=== PATIENT | male | born 1940 | race Caucasian/White ===

== ENCOUNTER 2016-10-05 03:39 | Emergency (ER) | payer MEDICAID, MEDICARE ==
[~2016-10-05] VITALS: Ht 190.5 cm; Wt 91.0 kg
[~2016-10-05 03:39] MED LIST: ALBU6.7H INH; ASPI-515 PO; CLOP75TA22 PO; CYAN10005 PO; FLUT1BLS INH; FOLI-17 PO; HYDR-3138 PO; IPRA3AMP INH; LEVO500T33 PO; LEVO750T26 PO; MAGN400T26 PO; MORP30TA3 PO; ONDA4TAB10 PO; ONDA4TAB7 PO; OXYC-74; PHOS250T3 PO; POLY17PO5 PO; PRED10TA14 PO; PRED20TA PO; SIMV20TA3 PO; TIOT18CA INH; ZOLP10TA PO
[2016-10-05] MEDS ORDERED: KETOROLAC 30 MG/1 ML ONE (04:08)
[2016-10-05] MEDS ORDERED: METHOCARBAMOL 750 MG TABLET ONE (04:08)
[2016-10-05] MEDS ORDERED: HYDROcodone/APAP 5/325 TABLET ONE (04:08)
[2016-10-05] MEDS ORDERED: HYDROcodone/APAP 5/325 TABLET PO ONE (04:30)
[2016-10-05] MEDS ORDERED: KETOROLAC 30 MG/1 ML IM ONE (04:30)
[2016-10-05] MEDS ORDERED: METHOCARBAMOL 750 MG TABLET PO ONE (04:30)
[2016-10-05 06:06] VITALS: BP 142/81
== END 2016-10-05 06:24 | disposition home or self-care (01) ==
LOC: ED 04:32
DX: S39.012A Strain of muscle, fascia and tendon of lower back, initial encounter (principal); J44.9 Chronic obstructive pulmonary disease, unspecified; Z86.73 Personal history of transient ischemic attack (TIA), and cerebral infarction without residual deficits; Z85.118 Personal history of other malignant neoplasm of bronchus and lung; Z90.49 Acquired absence of other specified parts of digestive tract; W01.0XXA Fall on same level from slipping, tripping and stumbling without subsequent striking against object, initial encounter; Y93.01 Activity, walking, marching and hiking; Y92.410 Unspecified street and highway as the place of occurrence of the external cause; Y99.9 Unspecified external cause status
CPT/HCPCS: 72110; 96372; 99284; J1885

== ENCOUNTER 2016-11-16 17:40 | Inpatient (IN) | payer MEDICARE, MEDICAID ==
[~2016-11-16] VITALS: Ht 190.5 cm; Wt 91.4 kg
[2016-11-16] MEDS: SODIUM CHLORIDE 0.9% 1,000 ML IV SCH (00:45)
[2016-11-16 18:57] LABS: BLOOD UREA NITROGEN 23 mg/dL (7-18)
[2016-11-16] MEDS ORDERED: MORPHINE SULFATE 4 MG/ML, 1ML ONE (18:58)
[2016-11-16] MEDS ORDERED: NITROGLYCERIN SINGLE TAB 0.4 MG SL ONE (18:58)
[2016-11-16] MEDS ORDERED: ASPIRIN 81 MG TABLET CHEW ONE (18:59)
[2016-11-16] MEDS ORDERED: SODIUM CHLORIDE 0.9% 1,000ML IVBOLUS ONE (19:00)
[2016-11-16] MEDS ORDERED: NITROGLYCERIN SINGLE TAB 0.4 MG SL PRN (19:00)
[2016-11-16] MEDS ORDERED: MORPHINE SULFATE 4 MG/ML, 1ML IVPush PRN (19:00)
[2016-11-16] MEDS ORDERED: ASPIRIN 81 MG TABLET CHEW PO ONE (19:00)
[2016-11-16 19:01] LABS: IS PT STATUS REG ER OR PRE ER? YES
[2016-11-16] MEDS ORDERED: CLOP75TA22 PO (19:11)
[2016-11-16] MEDS ORDERED: OMNIPAQUE 350 MG/ML, 100ML BOTTLE ONE (20:49)
[2016-11-16] MEDS ORDERED: LORazepam 1MG TABLET ONE (21:35)
[2016-11-16] MEDS ORDERED: LORazepam 1MG TABLET PO ONE (22:00)
[2016-11-16 23:23] VITALS: BP 118/69
[2016-11-17] MEDS ORDERED: ENALAPRILAT 1.25 MG/ML, 2ML IVPush PRN
[2016-11-17] MEDS ORDERED: DOCUSATE 100 MG CAPSULE PO PRN
[2016-11-17] MEDS ORDERED: HEPARIN 5,000 UNITS/ML, 1ML SQ SCH
[2016-11-17] MEDS: morphine SULFATE 10 MG/ML, 1ML IVPush PRN ×3 (00:45→15:08)
[2016-11-17 02:00] VITALS: BP 123/80
[2016-11-17 05:44] LABS: BLOOD UREA NITROGEN 23 mg/dL (7-18)
[2016-11-17 06:32] LABS: IS PT STATUS REG ER OR PRE ER? NO
[2016-11-17 08:09] VITALS: BP 117/67
[2016-11-17] MEDS ORDERED: SODIUM PHOSPHATE 20 MMOL in SODIUM CHLORIDE 0.9% 500 ML IV ONE (08:30)
[2016-11-17] MEDS: CLOPIDOGREL 75 MG TABLET PO SCH (08:36)
[2016-11-17 08:37] VITALS: BP_SYST 114; BP_SYST 121; BP_DIAS 68; BP_DIAS 71
[2016-11-17] MEDS: SODIUM CHLORIDE 0.9% 1,000 ML IV SCH ×2 (09:05→19:51)
[2016-11-17] MEDS: ENOXAPARIN 40 MG/0.4 ML SQ SCH (09:10)
[2016-11-17] MEDS ORDERED: REGADENOSON 0.4 MG/5 ML SYRINGE ONE (10:13)
[2016-11-17] MEDS: ALBUTEROL/IPRATROPIUM 2.5MG/0.5MG, 3 ML NPPB SCH ×3 (11:00→21:14)
[2016-11-17 14:56] VITALS: BP 120/72
[2016-11-17 18:40] VITALS: BP 102/54
[2016-11-18] MEDS: morphine SULFATE 10 MG/ML, 1ML IVPush PRN ×4 (02:39→21:09)
[2016-11-18 02:58] VITALS: BP 93/60
[2016-11-18] MEDS: SODIUM CHLORIDE 0.9% 1,000 ML IV SCH ×2 (06:19→15:51)
[2016-11-18 07:03] LABS: BLOOD UREA NITROGEN 18 mg/dL (7-18)
[2016-11-18] MEDS: ALBUTEROL/IPRATROPIUM 2.5MG/0.5MG, 3 ML NPPB SCH ×4 (07:08→19:16)
[2016-11-18 08:25] VITALS: BP 128/81
[2016-11-18] MEDS: ENOXAPARIN 40 MG/0.4 ML SQ SCH (08:30)
[2016-11-18] MEDS: CLOPIDOGREL 75 MG TABLET PO SCH (08:30)
[2016-11-18] MEDS ORDERED: ALBU18HF INH (10:11)
[2016-11-18] MEDS ORDERED: UMEC62.5 INH (10:14)
[2016-11-18] MEDS ORDERED: LORazepam 1MG TABLET PO ONE (12:00)
[2016-11-18 14:32] VITALS: BP 121/72
[2016-11-18 15:32] VITALS: BP 119/66
[2016-11-18 19:36] VITALS: BP 94/59
[2016-11-19 00:45] VITALS: BP 123/76
[2016-11-19] MEDS: morphine SULFATE 10 MG/ML, 1ML IVPush PRN ×6 (00:48→22:08)
[2016-11-19] MEDS: SODIUM CHLORIDE 0.9% 1,000 ML IV SCH (01:51)
[2016-11-19] MEDS: ORAJEL 7GM TUBE MM PRN (06:04)
[2016-11-19] MEDS: ALBUTEROL/IPRATROPIUM 2.5MG/0.5MG, 3 ML NPPB SCH ×4 (06:51→20:00)
[2016-11-19 10:16] VITALS: BP 108/72
[2016-11-19] MEDS: CLOPIDOGREL 75 MG TABLET PO SCH (10:17)
[2016-11-19] MEDS: ENOXAPARIN 40 MG/0.4 ML SQ SCH (10:17)
[2016-11-19 13:15] VITALS: BP 108/73
[2016-11-19 14:10] VITALS: BP 109/67
[2016-11-19 18:35] VITALS: BP 118/76
[2016-11-20 01:10] VITALS: BP 147/97
[2016-11-20] MEDS: morphine SULFATE 10 MG/ML, 1ML IVPush PRN ×7 (01:39→23:50)
[2016-11-20] MEDS: ORAJEL 7GM TUBE MM PRN (05:05)
[2016-11-20] MEDS: ALBUTEROL/IPRATROPIUM 2.5MG/0.5MG, 3 ML NPPB SCH ×4 (07:01→20:00)
[2016-11-20 07:26] VITALS: BP 109/61
[2016-11-20] MEDS: CLOPIDOGREL 75 MG TABLET PO SCH (09:17)
[2016-11-20] MEDS: ENOXAPARIN 40 MG/0.4 ML SQ SCH (09:18)
[2016-11-20 12:49] VITALS: BP 105/72
[2016-11-20 19:39] VITALS: BP 98/71
[2016-11-21 02:45] VITALS: BP 106/63
[2016-11-21] MEDS: morphine SULFATE 10 MG/ML, 1ML IVPush PRN ×4 (04:07→19:06)
[2016-11-21 06:42] VITALS: BP 90/66
[2016-11-21] MEDS: ALBUTEROL/IPRATROPIUM 2.5MG/0.5MG, 3 ML NPPB SCH (06:48)
[2016-11-21] MEDS: CLOPIDOGREL 75 MG TABLET PO SCH (08:54)
[2016-11-21] MEDS: ENOXAPARIN 40 MG/0.4 ML SQ SCH (08:55)
[2016-11-21 15:10] VITALS: BP 98/69
[2016-11-21 19:23] VITALS: BP 103/69
[2016-11-22 01:21] VITALS: BP 99/74
[2016-11-22] MEDS: morphine SULFATE 10 MG/ML, 1ML IVPush PRN ×4 (04:08→20:35)
[2016-11-22 07:05] VITALS: BP 100/66
[2016-11-22] MEDS: ENOXAPARIN 40 MG/0.4 ML SQ SCH (09:44)
[2016-11-22] MEDS: CLOPIDOGREL 75 MG TABLET PO SCH (09:44)
[2016-11-22] MEDS: ORAJEL 7GM TUBE MM PRN (10:01)
[2016-11-22 14:24] VITALS: BP 103/79
[2016-11-22 21:05] VITALS: BP 112/71
[2016-11-22] MEDS: ALBUTEROL/IPRATROPIUM 2.5MG/0.5MG, 3 ML NPPB PRN (21:35)
[2016-11-23] MEDS: morphine SULFATE 10 MG/ML, 1ML IVPush PRN ×6 (03:43→23:37)
[2016-11-23 03:55] VITALS: BP 89/55
[2016-11-23 07:46] VITALS: BP 119/76
[2016-11-23] MEDS: predniSONE 50MG TABLET PO SCH (07:56)
[2016-11-23] MEDS: CLOPIDOGREL 75 MG TABLET PO SCH (07:56)
[2016-11-23] MEDS: ENOXAPARIN 40 MG/0.4 ML SQ SCH (07:56)
[2016-11-23 13:32] VITALS: BP 96/75
[2016-11-23] MEDS: KETOCONAZOLE CRM 2%, 15GM TP SCH (16:20)
[2016-11-23 19:35] VITALS: BP 103/66
[2016-11-24 01:18] VITALS: BP 90/60
[2016-11-24] MEDS: morphine SULFATE 10 MG/ML, 1ML IVPush PRN ×5 (03:06→23:47)
[2016-11-24 07:46] VITALS: BP 97/65
[2016-11-24] MEDS: KETOCONAZOLE CRM 2%, 15GM TP SCH ×2 (08:24→19:39)
[2016-11-24] MEDS: predniSONE 50MG TABLET PO SCH (08:24)
[2016-11-24] MEDS: ENOXAPARIN 40 MG/0.4 ML SQ SCH (08:24)
[2016-11-24] MEDS: CLOPIDOGREL 75 MG TABLET PO SCH (08:24)
[2016-11-24] MEDS: ORAJEL 7GM TUBE MM PRN (08:42)
[2016-11-24 12:53] VITALS: BP 103/57
[2016-11-24 18:48] VITALS: BP 102/64
[2016-11-24] MEDS: ALBUTEROL/IPRATROPIUM 2.5MG/0.5MG, 3 ML NPPB PRN (21:44)
[2016-11-25 01:02] VITALS: BP 111/65
[2016-11-25] MEDS: morphine SULFATE 10 MG/ML, 1ML IVPush PRN ×5 (05:35→21:31)
[2016-11-25 07:12] VITALS: BP 106/53
[2016-11-25] MEDS: KETOCONAZOLE CRM 2%, 15GM TP SCH ×2 (09:18→21:00)
[2016-11-25] MEDS: predniSONE 50MG TABLET PO SCH (09:18)
[2016-11-25] MEDS: ENOXAPARIN 40 MG/0.4 ML SQ SCH (09:18)
[2016-11-25] MEDS: CLOPIDOGREL 75 MG TABLET PO SCH (09:18)
[2016-11-25 15:02] VITALS: BP 90/55
[2016-11-25 19:08] VITALS: BP 100/69
[2016-11-26 01:25] VITALS: BP 123/76
[2016-11-26] MEDS: morphine SULFATE 10 MG/ML, 1ML IVPush PRN ×5 (02:09→22:28)
[2016-11-26 07:45] VITALS: BP 132/86
[2016-11-26] MEDS: CLOPIDOGREL 75 MG TABLET PO SCH (07:46)
[2016-11-26] MEDS: KETOCONAZOLE CRM 2%, 15GM TP SCH ×2 (07:47→22:28)
[2016-11-26] MEDS: predniSONE 50MG TABLET PO SCH (07:47)
[2016-11-26] MEDS: ENOXAPARIN 40 MG/0.4 ML SQ SCH (07:47)
[2016-11-26 12:40] VITALS: BP 126/68
[2016-11-26 19:10] VITALS: BP 127/73
[2016-11-27 02:18] VITALS: BP 103/58
[2016-11-27] MEDS: morphine SULFATE 10 MG/ML, 1ML IVPush PRN ×2 (03:00→08:19)
[2016-11-27] MEDS ORDERED: ALBUTEROL/IPRATROPIUM 2.5MG/0.5MG, 3 ML ONE (05:33)
[2016-11-27 07:37] VITALS: BP 90/50
[2016-11-27] MEDS: predniSONE 50MG TABLET PO SCH (08:19)
[2016-11-27] MEDS: CLOPIDOGREL 75 MG TABLET PO SCH (08:19)
[2016-11-27] MEDS: KETOCONAZOLE CRM 2%, 15GM TP SCH ×2 (08:19→21:00)
[2016-11-27] MEDS: ENOXAPARIN 40 MG/0.4 ML SQ SCH (08:19)
[2016-11-27 14:35] VITALS: BP 92/58
[2016-11-27 22:32] VITALS: BP 93/67
[2016-11-28 01:49] VITALS: BP 115/78
[2016-11-28 08:06] VITALS: BP 110/70
[2016-11-28] MEDS: ENOXAPARIN 40 MG/0.4 ML SQ SCH (08:35)
[2016-11-28] MEDS: CLOPIDOGREL 75 MG TABLET PO SCH (08:35)
[2016-11-28] MEDS: KETOCONAZOLE CRM 2%, 15GM TP SCH ×2 (08:35→19:28)
[2016-11-28] MEDS: ALBUTEROL/IPRATROPIUM 2.5MG/0.5MG, 3 ML NPPB PRN (12:10)
[2016-11-28 15:24] VITALS: BP 114/58
[2016-11-28 18:51] VITALS: BP 105/67
[2016-11-29 01:20] VITALS: BP 103/72
[2016-11-29 07:52] VITALS: BP 100/56
[2016-11-29] MEDS: ENOXAPARIN 40 MG/0.4 ML SQ SCH (10:59)
[2016-11-29] MEDS: CLOPIDOGREL 75 MG TABLET PO SCH (10:59)
[2016-11-29] MEDS: KETOCONAZOLE CRM 2%, 15GM TP SCH ×2 (11:01→20:55)
[2016-11-29] MEDS: ALBUTEROL/IPRATROPIUM 2.5MG/0.5MG, 3 ML NPPB PRN (12:30)
[2016-11-29] MEDS ORDERED: SODIUM CHLORIDE 0.9%, 500ML IVBOLUS ONE (14:00)
[2016-11-29 15:59] VITALS: BP 107/70
[2016-11-29 20:30] VITALS: BP 114/69
[2016-11-30 00:42] VITALS: BP 99/52
[2016-11-30 09:09] VITALS: BP 128/76
[2016-11-30] MEDS: CLOPIDOGREL 75 MG TABLET PO SCH (09:35)
[2016-11-30] MEDS: ENOXAPARIN 40 MG/0.4 ML SQ SCH (09:35)
[2016-11-30] MEDS: KETOCONAZOLE CRM 2%, 15GM TP SCH ×2 (09:36→20:34)
[2016-11-30 14:56] VITALS: BP 118/68
[2016-11-30 20:07] VITALS: BP 104/68
[2016-12-01 03:04] VITALS: BP 100/55
[2016-12-01 09:11] VITALS: BP 92/54
[2016-12-01] MEDS: CLOPIDOGREL 75 MG TABLET PO SCH (09:35)
[2016-12-01] MEDS: ENOXAPARIN 40 MG/0.4 ML SQ SCH (09:35)
[2016-12-01] MEDS: KETOCONAZOLE CRM 2%, 15GM TP SCH ×2 (09:36→20:25)
[2016-12-01 13:14] VITALS: BP 110/70
[2016-12-01 19:33] VITALS: BP 105/51
[2016-12-02 03:17] VITALS: BP 102/65
[2016-12-02 07:06] VITALS: BP 110/61
[2016-12-02] MEDS: CLOPIDOGREL 75 MG TABLET PO SCH (09:36)
[2016-12-02] MEDS: KETOCONAZOLE CRM 2%, 15GM TP SCH ×2 (09:36→23:11)
[2016-12-02] MEDS: ENOXAPARIN 40 MG/0.4 ML SQ SCH (09:36)
[2016-12-02 13:52] VITALS: BP 113/75
[2016-12-02 19:29] VITALS: BP 104/57
[2016-12-03 04:15] VITALS: BP 98/51
[2016-12-03 07:15] VITALS: BP 122/71
[2016-12-03] MEDS: KETOCONAZOLE CRM 2%, 15GM TP SCH (09:33)
[2016-12-03] MEDS: CLOPIDOGREL 75 MG TABLET PO SCH (09:33)
[2016-12-03] MEDS: ENOXAPARIN 40 MG/0.4 ML SQ SCH (09:33)
[2016-12-03 13:26] VITALS: BP 141/83
[2016-12-03] MEDS ORDERED: KETO15CR2 EXT (13:47)
== END 2016-12-03 14:50 | disposition home or self-care (01) | DRG 314 ==
LOC: ED 20:05 → EDIP 21:30 → 5SO 22:57 → 4NOR 11-19 18:18
PROVIDERS: ADMIT Internal Medicine; ATTEND Internal Medicine
DX: T82.119A Breakdown (mechanical) of unspecified cardiac electronic device, initial encounter (principal); J96.20 Acute and chronic respiratory failure, unspecified whether with hypoxia or hypercapnia; J18.9 Pneumonia, unspecified organism; G45.8 Other transient cerebral ischemic attacks and related syndromes; D63.8 Anemia in other chronic diseases classified elsewhere; B02.9 Zoster without complications; I25.119 Atherosclerotic heart disease of native coronary artery with unspecified angina pectoris; F41.9 Anxiety disorder, unspecified; I48.91 Unspecified atrial fibrillation; I50.9 Heart failure, unspecified; Y71.2 Prosthetic and other implants, materials and accessory cardiovascular devices associated with adverse incidents; J43.2 Centrilobular emphysema; Z59.0 Homelessness; Z85.118 Personal history of other malignant neoplasm of bronchus and lung; Z86.711 Personal history of pulmonary embolism; Z86.73 Personal history of transient ischemic attack (TIA), and cerebral infarction without residual deficits; Z90.49 Acquired absence of other specified parts of digestive tract; Z90.2 Acquired absence of lung [part of]; Z87.891 Personal history of nicotine dependence; D71 Functional disorders of polymorphonuclear neutrophils; I25.2 Old myocardial infarction
CPT/HCPCS: 36415; 71010; 71275; 78452; 80048; 80061; 82040; 82565; 83735; 83880; 84100; 84145; 84436; 84439; 84443; 84484; 85025; 85379; 85610; 85730; 87798; 93005; 93017; 93306; 93931; 94640; 96374; J1650; J2785; J7620; Q9967; A9502; C9898; J2270; J7030; J7040; J7512

== ENCOUNTER 2017-04-03 17:04 | Inpatient (IN) | payer MEDICARE, MEDICAID ==
[~2017-04-03] VITALS: Ht 190.5 cm; Wt 90.0 kg
[~2017-04-03 17:04] MED LIST changes: +ALBU18HF INH; -CLOP75TA22 PO; +CLOP75TA52 PO; -HYDR-3138 PO; +HYDR-3237 PO; +KETO15CR2 EXT; -LEVO500T33 PO; +LEVO500T47 PO; +OXYC-296; -OXYC-74; +UMEC62.5 INH
[2017-04-03] MEDS ORDERED: SODIUM CHLORIDE 0.9% 1,000ML IVBOLUS ONE (19:30)
[2017-04-03] MEDS ORDERED: ONDANSETRON 2MG/ML, 2ML IVPush ONE (19:30)
[2017-04-03] MEDS ORDERED: SODIUM CHLORIDE FLUSH 10ML SYR IVF ONE (19:30)
[2017-04-03 19:43] LABS: ASPARTATE AMINO TRANSFERASE 26 U/L (15-37); BLOOD UREA NITROGEN 14 mg/dL (7-18)
[2017-04-03 19:45] LABS: ACETAMINOPHEN < 2 mcg/mL (10-30)
[2017-04-03 19:49] LABS: HEMATOCRIT 34.1 % (39.2-51.8); HEMOGLOBIN 11.6 g/dL (13.7-18.0); WHITE BLOOD COUNT 5.1 x10^3/uL (3.4-10)
[2017-04-03 19:57] LABS: DAU SCREEN DISCLAIMER
[2017-04-03 19:59] LABS: ANISOCYTOSIS 1+; POIKILOCYTOSIS 1+
[2017-04-04] MEDS ORDERED: ACETAMINOPHEN 325 MG TABLET PO PRN (01:00)
[2017-04-04] MEDS: VENLAFAXINE XR 37.5MG CAP.ER.24H PO SCH (10:28)
[2017-04-04] MEDS ORDERED: CLOPIDOGREL 75 MG TABLET ONE (12:36)
[2017-04-04] MEDS ORDERED: HYDROcodone/APAP 5/325 TABLET ONE ×2 (12:37→18:23)
[2017-04-04] MEDS: HYDROcodone/APAP 5/325 TABLET PO PRN ×2 (12:47→18:30)
[2017-04-04] MEDS: CLOPIDOGREL 75 MG TABLET PO SCH (12:50)
[2017-04-04] MEDS ORDERED: DOCUSATE 100 MG CAPSULE ONE (18:24)
[2017-04-04] MEDS: DOCUSATE 100 MG CAPSULE PO PRN (18:31)
[2017-04-04] MEDS ORDERED: ALBUTEROL SULFATE 2.5 MG/3 ML ONE (18:48)
[2017-04-04] MEDS ORDERED: ALBUTEROL SULFATE 2.5 MG/3 ML NPPB PRN (19:00)
[2017-04-04] MEDS ORDERED: ALBUTEROL SULFATE INH SCH (21:00)
[2017-04-05] MEDS ORDERED: HYDROcodone/APAP 5/325 TABLET ONE ×2 (00:50→10:21)
[2017-04-05] MEDS: HYDROcodone/APAP 5/325 TABLET PO PRN ×2 (00:52→10:22)
[2017-04-05 04:52] LABS: HEMOGLOBIN 11.9 g/dL (13.7-18.0); WHITE BLOOD COUNT 4.1 x10^3/uL (3.4-10)
[2017-04-05 04:56] LABS: BLOOD UREA NITROGEN 21 mg/dL (7-18)
[2017-04-05] MEDS ORDERED: TEMPLATE NON-FORMULARY MED. (Umeclidinium Bromide (Incruse Ellipta) 1 PUFF) INH SCH ×2 (09:00→10:01)
[2017-04-05] MEDS: ALBUTEROL SULFATE 2.5 MG/3 ML NPPB SCH ×2 (09:00→22:50)
[2017-04-05] MEDS ORDERED: ZIPRASIDONE 20MG CAPSULE ONE (09:50)
[2017-04-05] MEDS ORDERED: CLOPIDOGREL 75 MG TABLET ONE (09:51)
[2017-04-05] MEDS: VENLAFAXINE XR 37.5MG CAP.ER.24H PO SCH (10:03)
[2017-04-05] MEDS ORDERED: ONDANSETRON ODT 4 MG ONE (16:05)
[2017-04-05] MEDS ORDERED: ALBUTEROL SULFATE 2.5 MG/3 ML ONE ×2 (16:28→22:35)
[2017-04-05] MEDS ORDERED: ONDANSETRON ODT 4 MG PO ONE (16:30)
[2017-04-05] MEDS: CHLORDIAZEPOXIDE 25 MG CAPSULE PO PRN (17:50)
[2017-04-06] MEDS ORDERED: HYDROcodone/APAP 5/325 TABLET ONE ×2 (03:32→17:22)
[2017-04-06] MEDS: HYDROcodone/APAP 5/325 TABLET PO PRN ×2 (03:34→17:29)
[2017-04-06] MEDS ORDERED: ALBUTEROL SULFATE 2.5 MG/3 ML ONE ×2 (08:33→20:19)
[2017-04-06] MEDS: CLOPIDOGREL 75 MG TABLET PO SCH (08:40)
[2017-04-06] MEDS: VENLAFAXINE XR 37.5MG CAP.ER.24H PO SCH (08:40)
[2017-04-06] MEDS: CHLORDIAZEPOXIDE 25 MG CAPSULE PO PRN (08:40)
[2017-04-06] MEDS: ALBUTEROL SULFATE 2.5 MG/3 ML NPPB SCH ×2 (08:44→20:20)
[2017-04-06] MEDS ORDERED: DOCUSATE 100 MG CAPSULE ONE (17:22)
[2017-04-06] MEDS: DOCUSATE 100 MG CAPSULE PO PRN (17:29)
[2017-04-07] MEDS ORDERED: HYDROcodone/APAP 5/325 TABLET ONE ×2 (02:32→15:05)
[2017-04-07] MEDS: HYDROcodone/APAP 5/325 TABLET PO PRN ×2 (02:34→15:07)
[2017-04-07] MEDS: CLOPIDOGREL 75 MG TABLET PO SCH (09:00)
[2017-04-07] MEDS: ALBUTEROL SULFATE 2.5 MG/3 ML NPPB SCH (09:00)
[2017-04-07] MEDS: VENLAFAXINE XR 37.5MG CAP.ER.24H PO SCH (09:00)
[2017-04-07] MEDS ORDERED: ALBUTEROL SULFATE 2.5 MG/3 ML ONE (09:14)
[2017-04-07] MEDS: CHLORDIAZEPOXIDE 25 MG CAPSULE PO PRN (09:24)
[2017-04-07] MEDS ORDERED: IPRATROPIUM 0.5 MG/2.5 ML INHA NPPB SCH (10:30)
[2017-04-07] MEDS ORDERED: ALBUTEROL/IPRATROPIUM 2.5MG/0.5MG, 3 ML ONE (14:01)
[2017-04-07] MEDS: ALBUTEROL/IPRATROPIUM 2.5MG/0.5MG, 3 ML NPPB SCH ×2 (14:07→20:49)
[2017-04-08] MEDS: ALBUTEROL/IPRATROPIUM 2.5MG/0.5MG, 3 ML NPPB SCH ×4 (02:34→21:00)
[2017-04-08 05:38] LABS: BLOOD UREA NITROGEN 23 mg/dL (7-18)
[2017-04-08 05:42] LABS: HEMATOCRIT 41.9 % (39.2-51.8); HEMOGLOBIN 14.3 g/dL (13.7-18.0); WHITE BLOOD COUNT 6.3 x10^3/uL (3.4-10)
[2017-04-08 05:50] LABS: DIFF TOTAL CELLS COUNTED 100 CELL DIFF
[2017-04-08 05:52] LABS: ANISOCYTOSIS 1+; VERIFY COUNTS? YES
[2017-04-08] MEDS ORDERED: HYDROcodone/APAP 5/325 TABLET ONE ×2 (10:37→22:46)
[2017-04-08] MEDS: HYDROcodone/APAP 5/325 TABLET PO PRN ×2 (10:39→23:03)
[2017-04-08] MEDS ORDERED: CLOPIDOGREL 75 MG TABLET ONE (10:44)
[2017-04-08] MEDS: CLOPIDOGREL 75 MG TABLET PO SCH (10:45)
[2017-04-08] MEDS: VENLAFAXINE XR 37.5MG CAP.ER.24H PO SCH (11:44)
[2017-04-08] MEDS ORDERED: DOCUSATE 100 MG CAPSULE ONE (20:22)
[2017-04-08] MEDS: DOCUSATE 100 MG CAPSULE PO PRN (23:03)
[2017-04-08] MEDS: CHLORDIAZEPOXIDE 25 MG CAPSULE PO PRN (23:03)
[2017-04-08] MEDS ORDERED: ONDANSETRON ODT 4 MG PO ONE (23:30)
[2017-04-08] MEDS ORDERED: ONDANSETRON ODT 4 MG ONE (23:43)
[2017-04-09] MEDS ORDERED: BISACODYL 10 MG SUPP PR PRN (00:30)
[2017-04-09] MEDS ORDERED: BISACODYL 10 MG SUPP ONE (00:30)
[2017-04-09] MEDS: ALBUTEROL/IPRATROPIUM 2.5MG/0.5MG, 3 ML NPPB SCH ×3 (03:00→15:00)
[2017-04-09] MEDS: CLOPIDOGREL 75 MG TABLET PO SCH (09:00)
[2017-04-09] MEDS ORDERED: HYDROcodone/APAP 5/325 TABLET ONE (17:30)
[2017-04-09] MEDS: HYDROcodone/APAP 5/325 TABLET PO PRN (18:15)
[2017-04-09] MEDS ORDERED: DOCUSATE 100 MG CAPSULE ONE (18:38)
[2017-04-09] MEDS: DOCUSATE 100 MG CAPSULE PO PRN (18:52)
[2017-04-09] MEDS: CHLORDIAZEPOXIDE 25 MG CAPSULE PO PRN (18:52)
[2017-04-09] MEDS ORDERED: ALBUTEROL/IPRATROPIUM 2.5MG/0.5MG, 3 ML NPPB PRN (21:30)
[2017-04-10] MEDS ORDERED: CLOPIDOGREL 75 MG TABLET ONE (08:33)
[2017-04-10] MEDS: CLOPIDOGREL 75 MG TABLET PO SCH (08:37)
[2017-04-10] MEDS: VENLAFAXINE XR 37.5MG CAP.ER.24H PO SCH (08:38)
[2017-04-10] MEDS ORDERED: HYDROcodone/APAP 5/325 TABLET ONE (08:40)
[2017-04-10] MEDS: HYDROcodone/APAP 5/325 TABLET PO PRN (08:41)
[2017-04-10] MEDS ORDERED: BISACODYL 10 MG SUPP PR PRN (20:00)
[2017-04-10] MEDS ORDERED: ACETAMINOPHEN 325 MG TABLET PO PRN (20:00)
[2017-04-10] MEDS ORDERED: DOCUSATE 100 MG CAPSULE PO PRN (20:00)
[2017-04-10] MEDS ORDERED: ALBUTEROL SULFATE 2.5 MG/3 ML NPPB PRN (20:00)
[2017-04-10] MEDS ORDERED: ALBUTEROL/IPRATROPIUM 2.5MG/0.5MG, 3 ML NPPB PRN (20:00)
[2017-04-10 20:02] VITALS: BP 94/59
== END 2017-04-10 20:59 | DRG 881 ==
LOC: ED 23:59 → EDIP 04-04 00:39
PROVIDERS: ADMIT Hospitalist; ATTEND Hospitalist
DX: F32.9 Major depressive disorder, single episode, unspecified (principal); K92.0 Hematemesis; D69.6 Thrombocytopenia, unspecified; I48.91 Unspecified atrial fibrillation; R45.851 Suicidal ideations; J44.9 Chronic obstructive pulmonary disease, unspecified; Z88.6 Allergy status to analgesic agent; Z88.8 Allergy status to other drugs, medicaments and biological substances; M81.0 Age-related osteoporosis without current pathological fracture; Z59.0 Homelessness; Z85.118 Personal history of other malignant neoplasm of bronchus and lung; Z86.711 Personal history of pulmonary embolism; Z86.73 Personal history of transient ischemic attack (TIA), and cerebral infarction without residual deficits; Z91.83 Wandering in diseases classified elsewhere; Z95.0 Presence of cardiac pacemaker; F17.210 Nicotine dependence, cigarettes, uncomplicated
CPT/HCPCS: 36415; 80048; 80053; 80307; 80329; 85025; 93005; 94640; 99285; J7613; J7620; Q0162; G0479; G0480

== ENCOUNTER 2017-08-30 08:56 | Inpatient (IN) | payer MEDICARE, MEDICAID ==
[~2017-08-30] VITALS: Ht 190.5 cm; Wt 94.1 kg
[2017-08-30] MEDS ORDERED: SODIUM CHLORIDE 0.9% 1,000ML IVBOLUS ONE ×2 (09:30→11:00)
[2017-08-30] MEDS ORDERED: SODIUM CHLORIDE FLUSH 10ML SYR IVF ONE (09:30)
[2017-08-30] MEDS ORDERED: ALBUTEROL/IPRATROPIUM 2.5MG/0.5MG, 3 ML NPPB SCH (09:30)
[2017-08-30] MEDS ORDERED: HYDR-3240 PO (09:42)
[2017-08-30] MEDS ORDERED: ONDA4TAB7 PO (09:42)
[2017-08-30] MEDS ORDERED: ALBUTEROL/IPRATROPIUM 2.5MG/0.5MG, 3 ML ONE (09:43)
[2017-08-30] MEDS ORDERED: MIDO5TAB PO (09:48)
[2017-08-30 09:55] LABS: MEAN CORPUSCULAR HEMOGLOBIN 32.5 pg (27.5-34.5); MEAN CORPUSCULAR HGB CONC 34.2 g/dL (33.2-36.2); MEAN CORPUSCULAR VOLUME 94.8 fL (81-97); PLATELET COUNT 109 x10^3/uL (130-400); RED BLOOD COUNT 4.52 x10^6/uL (4.38-5.82); RED CELL DISTRIBUTION WIDTH 14.7 % (9.4-14.8)
[2017-08-30 10:06] LABS: ALANINE AMINOTRANSFERASE 43 U/L (12-78); ALBUMIN 3.6 g/dL (3.4-5.0); ANION GAP 11 mmol/L (5-15); CALCIUM 8.5 mg/dL (8.5-10.1); CHLORIDE 103 mmol/L (98-107); CREATININE 1.02 mg/dL (0.7-1.3)
[2017-08-30 10:10] LABS: ALKALINE PHOSPHATASE 103 U/L (45-117); BILIRUBIN,TOTAL 0.5 mg/dL (0.2-1.0); TOTAL PROTEIN 7.1 g/dL (6.4-8.2); TROPONIN I 0.079 ng/mL (0.000-0.045)
[2017-08-30 10:25] LABS: BASOPHILS # (AUTO) 0.01 x10^3/uL (0-0.1); BASOPHILS % (AUTO) 0 % (0-1); EOSINOPHILS % (AUTO) 0 % (1-7); LYMPHOCYTES # (AUTO) 1.09 x10^3/uL (1-3.4); LYMPHOCYTES % (AUTO) 6 % (22-44); MD SCAN; MONOCYTES # (AUTO) 1.71 x10^3/uL (0.2-0.8); MONOCYTES % (AUTO) 10 % (2-9); NEUTROPHILS # (AUTO) 14.27 x10^3/uL (1.8-6.8); NEUTROPHILS % (AUTO) 84 % (42-75)
[2017-08-30] MEDS ORDERED: CEFTRIAXONE PMX 1GM/50ML 50 ML IV ONE (11:00)
[2017-08-30] MEDS ORDERED: KETOROLAC 30 MG/1 ML IVPush ONE (11:00)
[2017-08-30] MEDS ORDERED: ASPIRIN 81 MG TABLET CHEW PO ONE (11:00)
[2017-08-30] MEDS ORDERED: AZITHROMYCIN 500 MG in SODIUM CHLORIDE 0.9% 250 ML IV ONE (11:00)
[2017-08-30] MEDS ORDERED: CEFTRIAXONE PMX 1GM/50ML 50 ML ONE (11:17)
[2017-08-30] MEDS ORDERED: ASPIRIN 81 MG TABLET CHEW ONE (11:18)
[2017-08-30] MEDS ORDERED: KETOROLAC 30 MG/1 ML ONE (11:18)
[2017-08-30] MEDS ORDERED: HEPARIN 5,000 UNITS/ML, 1ML SQ SCH (12:30)
[2017-08-30] MEDS ORDERED: ACETAMINOPHEN 325 MG TABLET PO PRN (12:30)
[2017-08-30] MEDS: SODIUM CHLORIDE 0.9% 1,000 ML IV SCH (12:38)
[2017-08-30 12:43] VITALS: BP 118/65
[2017-08-30 13:00] LABS: TROPONIN I 0.079 ng/mL (0.000-0.045)
[2017-08-30] MEDS ORDERED: POTASSIUM CHLORIDE 20 MEQ TAB.ER.PRT ONE (13:13)
[2017-08-30] MEDS ORDERED: POTASSIUM CHLORIDE 20 MEQ TAB.ER.PRT PO ONE (13:30)
[2017-08-30] MEDS: ALBUTEROL/IPRATROPIUM 2.5MG/0.5MG, 3 ML NPPB SCH ×3 (14:18→23:35)
[2017-08-30 15:15] VITALS: BP 131/67
[2017-08-30 15:48] VITALS: BP 138/72
[2017-08-30 16:07] VITALS: BP 126/72
[2017-08-30 17:26] LABS: ANION GAP 13 mmol/L (5-15); CALCIUM 7.2 mg/dL (8.5-10.1); CHLORIDE 109 mmol/L (98-107); CREATININE 1.09 mg/dL (0.7-1.3)
[2017-08-30 17:30] LABS: TROPONIN I 0.058 ng/mL (0.000-0.045)
[2017-08-30 19:14] VITALS: BP 154/92
[2017-08-30] MEDS ORDERED: OMNIPAQUE 350 MG/ML, 100ML BOTTLE ONE (21:30)
[2017-08-30] MEDS: DOXYCYCLINE 100MG CAP PO SCH (21:59)
[2017-08-30] MEDS: KETOROLAC 30 MG/1 ML IVPush SCH (22:26)
[2017-08-31] MEDS: SODIUM CHLORIDE 0.9% 1,000 ML IV SCH (01:11)
[2017-08-31 01:14] VITALS: BP 166/96
[2017-08-31 01:29] LABS: MICROSCOPIC NOT IND
[2017-08-31 01:38] LABS: CULTURE INDICATED? NO
[2017-08-31 05:18] LABS: MEAN CORPUSCULAR HEMOGLOBIN 32.6 pg (27.5-34.5); MEAN CORPUSCULAR HGB CONC 34.5 g/dL (33.2-36.2); MEAN CORPUSCULAR VOLUME 94.5 fL (81-97); MEAN PLATELET VOLUME 8.8 fL (7.4-10.4); PLATELET COUNT 73 x10^3/uL (130-400); RED BLOOD COUNT 3.72 x10^6/uL (4.38-5.82); RED CELL DISTRIBUTION WIDTH 14.8 % (9.4-14.8)
[2017-08-31 05:25] LABS: ALBUMIN 2.7 g/dL (3.4-5.0); ANION GAP 10 mmol/L (5-15); CALCIUM 7.1 mg/dL (8.5-10.1); CHLORIDE 107 mmol/L (98-107)
[2017-08-31 05:28] LABS: ALANINE AMINOTRANSFERASE 35 U/L (12-78); ALKALINE PHOSPHATASE 74 U/L (45-117); BILIRUBIN,TOTAL 0.5 mg/dL (0.2-1.0); CREATININE 0.95 mg/dL (0.7-1.3); TOTAL PROTEIN 5.4 g/dL (6.4-8.2)
[2017-08-31 05:58] LABS: BASOPHILS # (AUTO) 0.01 x10^3/uL (0-0.1); BASOPHILS % (AUTO) 0 % (0-1); EOSINOPHILS % (AUTO) 0 % (1-7); LYMPHOCYTES # (AUTO) 0.76 x10^3/uL (1-3.4); LYMPHOCYTES % (AUTO) 9 % (22-44); MD SCAN; MONOCYTES # (AUTO) 0.83 x10^3/uL (0.2-0.8); MONOCYTES % (AUTO) 9 % (2-9); NEUTROPHILS # (AUTO) 7.34 x10^3/uL (1.8-6.8); NEUTROPHILS % (AUTO) 82 % (42-75)
[2017-08-31] MEDS: ALBUTEROL/IPRATROPIUM 2.5MG/0.5MG, 3 ML NPPB SCH ×3 (06:00→13:30)
[2017-08-31 07:45] VITALS: BP 160/79
[2017-08-31] MEDS: DOXYCYCLINE 100MG CAP PO SCH ×2 (08:06→21:09)
[2017-08-31] MEDS: CLOPIDOGREL 75 MG TABLET PO SCH (08:07)
[2017-08-31] MEDS ORDERED: SODIUM CHLORIDE 0.9% 1,000 ML IV SCH ×2 (12:06→16:30)
[2017-08-31 12:57] VITALS: BP 151/78
[2017-08-31] MEDS: CEFTRIAXONE PMX 2GM/50ML 50 ML IV SCH (13:59)
[2017-08-31] MEDS: KETOROLAC 30 MG/1 ML IVPush PRN ×2 (16:19→22:21)
[2017-08-31 18:43] VITALS: BP 146/84
[2017-08-31] MEDS ORDERED: ALBUTEROL/IPRATROPIUM 2.5MG/0.5MG, 3 ML NPPB PRN (22:00)
[2017-08-31] MEDS: GUAIFENESIN/DM 200-20MG, 10ML UDC PO PRN (22:21)
[2017-09-01 01:47] VITALS: BP 126/73
[2017-09-01 05:09] LABS: MEAN CORPUSCULAR HEMOGLOBIN 31.9 pg (27.5-34.5); MEAN CORPUSCULAR HGB CONC 33.8 g/dL (33.2-36.2); MEAN CORPUSCULAR VOLUME 94.5 fL (81-97); RED BLOOD COUNT 4.55 x10^6/uL (4.38-5.82); RED CELL DISTRIBUTION WIDTH 14.1 % (9.4-14.8)
[2017-09-01 05:11] LABS: ANION GAP 8 mmol/L (5-15); CALCIUM 7.9 mg/dL (8.5-10.1); CHLORIDE 105 mmol/L (98-107)
[2017-09-01 05:12] LABS: CREATININE 0.85 mg/dL (0.7-1.3)
[2017-09-01] MEDS: KETOROLAC 30 MG/1 ML IVPush PRN ×2 (05:30→19:18)
[2017-09-01 05:51] LABS: BASOPHILS # (AUTO) 0.02 x10^3/uL (0-0.1); BASOPHILS % (AUTO) 0 % (0-1); EOSINOPHILS # (AUTO) 0.12 x10^3/uL (0-0.4); EOSINOPHILS % (AUTO) 1 % (1-7); LYMPHOCYTES # (AUTO) 1.02 x10^3/uL (1-3.4); LYMPHOCYTES % (AUTO) 10 % (22-44); MD SCAN; MEAN PLATELET VOLUME 8.7 fL (7.4-10.4); MONOCYTES # (AUTO) 0.84 x10^3/uL (0.2-0.8); MONOCYTES % (AUTO) 8 % (2-9); NEUTROPHILS # (AUTO) 8.25 x10^3/uL (1.8-6.8); NEUTROPHILS % (AUTO) 81 % (42-75); PLATELET COUNT 79 x10^3/uL (130-400)
[2017-09-01 06:38] VITALS: BP 143/78
[2017-09-01] MEDS: CLOPIDOGREL 75 MG TABLET PO SCH (08:37)
[2017-09-01] MEDS: DOXYCYCLINE 100MG CAP PO SCH ×2 (08:37→19:18)
[2017-09-01 10:56] LABS: CLOSTRIDIUM DIFFICILE ANTIGEN NEGATIVE; CLOSTRIDIUM DIFFICILE TOXIN NEGATIVE (Negative)
[2017-09-01] MEDS ORDERED: SODIUM CHLORIDE 0.9% 1,000 ML IV SCH ×2 (12:06)
[2017-09-01] MEDS: CEFTRIAXONE PMX 2GM/50ML 50 ML IV SCH (12:37)
[2017-09-01 12:52] VITALS: BP 130/78
[2017-09-01 18:06] LABS: HIT RESULT NEGATIVE (NEGATIVE)
[2017-09-01] MEDS: GUAIFENESIN/DM 200-20MG, 10ML UDC PO PRN (19:18)
[2017-09-01 20:04] VITALS: BP 107/67
[2017-09-01] MEDS ORDERED: MELATONIN 3 MG TABLET PO ONE (21:00)
[2017-09-02 03:53] VITALS: BP 109/70
[2017-09-02 05:04] LABS: MEAN CORPUSCULAR HGB CONC 33.9 g/dL (33.2-36.2); MEAN CORPUSCULAR VOLUME 94.3 fL (81-97); MEAN PLATELET VOLUME 8.8 fL (7.4-10.4); PLATELET COUNT 84 x10^3/uL (130-400); RED BLOOD COUNT 4.18 x10^6/uL (4.38-5.82); RED CELL DISTRIBUTION WIDTH 14.7 % (9.4-14.8)
[2017-09-02 05:09] LABS: ANION GAP 7 mmol/L (5-15); CALCIUM 7.9 mg/dL (8.5-10.1); CHLORIDE 103 mmol/L (98-107); CREATININE 1.16 mg/dL (0.7-1.3)
[2017-09-02 05:50] LABS: BASOPHILS # (AUTO) 0.02 x10^3/uL (0-0.1); BASOPHILS % (AUTO) 0 % (0-1); EOSINOPHILS # (AUTO) 0.23 x10^3/uL (0-0.4); EOSINOPHILS % (AUTO) 2 % (1-7); LYMPHOCYTES # (AUTO) 1.06 x10^3/uL (1-3.4); LYMPHOCYTES % (AUTO) 11 % (22-44); MD SCAN; MONOCYTES # (AUTO) 1.03 x10^3/uL (0.2-0.8); MONOCYTES % (AUTO) 11 % (2-9); NEUTROPHILS # (AUTO) 6.96 x10^3/uL (1.8-6.8); NEUTROPHILS % (AUTO) 75 % (42-75)
[2017-09-02] MEDS: KETOROLAC 30 MG/1 ML IVPush PRN ×2 (06:13→14:10)
[2017-09-02 08:25] VITALS: BP 115/78
[2017-09-02] MEDS: DOXYCYCLINE 100MG CAP PO SCH ×2 (08:53→20:58)
[2017-09-02] MEDS: CLOPIDOGREL 75 MG TABLET PO SCH (08:53)
[2017-09-02 09:30] VITALS: BP 116/85
[2017-09-02] MEDS ORDERED: CEFTRIAXONE 2 GM in DEXTROSE 5% 100 ML IVPB SCH (11:00)
[2017-09-02] MEDS ORDERED: POTASSIUM CHLORIDE 20 MEQ TAB.ER.PRT PO ONE (12:30)
[2017-09-02 14:05] VITALS: BP 118/65
[2017-09-02 19:44] VITALS: BP 94/62
[2017-09-02] MEDS ORDERED: MELATONIN 5 MG TABLET ONE (23:05)
[2017-09-02] MEDS ORDERED: MELATONIN 5 MG TABLET PO ONE (23:30)
[2017-09-03 00:45] VITALS: BP 121/72
[2017-09-03 04:50] LABS: MEAN CORPUSCULAR HEMOGLOBIN 31.9 pg (27.5-34.5); MEAN CORPUSCULAR HGB CONC 34.1 g/dL (33.2-36.2); MEAN CORPUSCULAR VOLUME 93.6 fL (81-97); MEAN PLATELET VOLUME 9.2 fL (7.4-10.4); PLATELET COUNT 85 x10^3/uL (130-400); RED BLOOD COUNT 4.16 x10^6/uL (4.38-5.82); RED CELL DISTRIBUTION WIDTH 14.3 % (9.4-14.8)
[2017-09-03 04:52] LABS: ANION GAP 7 mmol/L (5-15); CALCIUM 7.8 mg/dL (8.5-10.1); CHLORIDE 107 mmol/L (98-107); CREATININE 0.84 mg/dL (0.7-1.3)
[2017-09-03 05:40] LABS: BASOPHILS # (AUTO) 0.03 x10^3/uL (0-0.1); BASOPHILS % (AUTO) 0 % (0-1); EOSINOPHILS # (AUTO) 0.22 x10^3/uL (0-0.4); EOSINOPHILS % (AUTO) 3 % (1-7); LYMPHOCYTES # (AUTO) 0.96 x10^3/uL (1-3.4); LYMPHOCYTES % (AUTO) 11 % (22-44); MD SCAN; MONOCYTES # (AUTO) 0.95 x10^3/uL (0.2-0.8); MONOCYTES % (AUTO) 11 % (2-9); NEUTROPHILS # (AUTO) 6.68 x10^3/uL (1.8-6.8); NEUTROPHILS % (AUTO) 76 % (42-75)
[2017-09-03] MEDS: KETOROLAC 30 MG/1 ML IVPush SCH (06:17)
[2017-09-03] MEDS: DOXYCYCLINE 100MG CAP PO SCH (08:31)
[2017-09-03] MEDS: CLOPIDOGREL 75 MG TABLET PO SCH (08:31)
[2017-09-03 08:34] VITALS: BP 106/66
[2017-09-03] MEDS ORDERED: CEFD300C37 PO (10:19)
[2017-09-03] MEDS ORDERED: DOXY100C2 PO (10:19)
[2017-09-03] MEDS ORDERED: GUAI200T3 PO (10:19)
== END 2017-09-03 10:43 | disposition home or self-care (01) | DRG 871 ==
LOC: ED 11:13 → EDIP 11:14 → ED 11:32 → 5SO 12:18 → 3NW 09-02 09:30
PROVIDERS: ADMIT Hospitalist; ATTEND Hospitalist
DX: A41.9 Sepsis, unspecified organism (principal); J15.9 Unspecified bacterial pneumonia; R65.21 Severe sepsis with septic shock; D69.6 Thrombocytopenia, unspecified; I48.91 Unspecified atrial fibrillation; I49.5 Sick sinus syndrome; J44.0 Chronic obstructive pulmonary disease with (acute) lower respiratory infection; M54.9 Dorsalgia, unspecified; R19.7 Diarrhea, unspecified; I95.0 Idiopathic hypotension; R09.02 Hypoxemia; E87.6 Hypokalemia; N40.0 Benign prostatic hyperplasia without lower urinary tract symptoms; F17.210 Nicotine dependence, cigarettes, uncomplicated; Z95.0 Presence of cardiac pacemaker; Z95.5 Presence of coronary angioplasty implant and graft; Z90.49 Acquired absence of other specified parts of digestive tract; Z90.2 Acquired absence of lung [part of]; Z79.82 Long term (current) use of aspirin; Z88.5 Allergy status to narcotic agent; Z88.8 Allergy status to other drugs, medicaments and biological substances; Z85.118 Personal history of other malignant neoplasm of bronchus and lung; Z86.711 Personal history of pulmonary embolism; Z86.718 Personal history of other venous thrombosis and embolism; Z86.73 Personal history of transient ischemic attack (TIA), and cerebral infarction without residual deficits
CPT/HCPCS: 36415; 71045; 71046; 71275; 80048; 80053; 81003; 82533; 83605; 83735; 83880; 84484; 85025; 86022; 87040; 87070; 87205; 87324; 93005; 93306; 94640; 96361; 96365; 96375; J0456; J0696; J1885; J7620; Q9967; J7030; J7050; J7512

== ENCOUNTER 2018-02-20 13:41 | Inpatient (IN) | payer MEDICARE, MEDICAID ==
[~2018-02-20] VITALS: Ht 190.5 cm; Wt 94.3 kg
[~2018-02-20 13:41] MED LIST changes: +CEFD300C37 PO; +DOXY100C2 PO; +GUAI200T3 PO; +HYDR-3240 PO; -IPRA3AMP INH; +IPRA3AMP30 INH; +MIDO5TAB PO
[2018-02-20] MEDS ORDERED: ALBUTEROL/IPRATROPIUM 2.5MG/0.5MG, 3 ML NPPB ONE (14:30)
[2018-02-20] MEDS ORDERED: ALBUTEROL/IPRATROPIUM 2.5MG/0.5MG, 3 ML ONE (14:30)
[2018-02-20 14:46] LABS: BASOPHILS # (AUTO) 0.02 x10^3/uL (0-0.1); BASOPHILS % (AUTO) 0 % (0-1); EOSINOPHILS # (AUTO) 0.04 x10^3/uL (0-0.4); EOSINOPHILS % (AUTO) 1 % (1-7); LYMPHOCYTES % (AUTO) 17 % (22-44); MEAN CORPUSCULAR HEMOGLOBIN 32.1 pg (27.5-34.5); MEAN CORPUSCULAR HGB CONC 34.1 g/dL (33.2-36.2); MEAN CORPUSCULAR VOLUME 94.1 fL (81-97); MEAN PLATELET VOLUME 9.2 fL (7.4-10.4); MONOCYTES % (AUTO) 17 % (2-9); NEUTROPHILS # (AUTO) 4.34 x10^3/uL (1.8-6.8); NEUTROPHILS % (AUTO) 66 % (42-75); PLATELET COUNT 115 x10^3/uL (130-400); RED CELL DISTRIBUTION WIDTH 15.9 % (9.4-14.8)
[2018-02-20 14:47] LABS: MD NO
[2018-02-20 14:58] LABS: ALBUMIN 3.4 g/dL (3.4-5.0); ANION GAP 12 mmol/L (5-15); CALCIUM 8.4 mg/dL (8.5-10.1); CHLORIDE 108 mmol/L (98-107); CREATININE 0.94 mg/dL (0.7-1.3)
[2018-02-20] MEDS ORDERED: ASPIRIN 81 MG TABLET CHEW ONE (15:14)
[2018-02-20] MEDS ORDERED: GABA300C10 PO (15:29)
[2018-02-20] MEDS ORDERED: MIDO5TAB PO (15:29)
[2018-02-20] MEDS ORDERED: SODIUM CHLORIDE FLUSH 10ML SYR IVF ONE (15:30)
[2018-02-20] MEDS ORDERED: SODIUM CHLORIDE 0.9% 1,000ML IVBOLUS ONE (15:30)
[2018-02-20] MEDS ORDERED: ASPIRIN 81 MG TABLET CHEW PO ONE (15:30)
[2018-02-20] MEDS ORDERED: LABETALOL 5MG/ML, 20ML IVPush PRN (17:00)
[2018-02-20] MEDS ORDERED: DOCUSATE 100 MG CAPSULE PO PRN (17:00)
[2018-02-20] MEDS ORDERED: ENALAPRILAT 1.25 MG/ML, 2ML IVPush PRN (17:00)
[2018-02-20] MEDS ORDERED: GUAIFENESIN/DM 200-20MG, 10ML UDC PO PRN (17:00)
[2018-02-20] MEDS ORDERED: ONDANSETRON 2MG/ML, 2ML IVPush PRN (17:00)
[2018-02-20] MEDS ORDERED: POLYETHYLENE GLYCOL 17 GM PACKET PO PRN (17:00)
[2018-02-20] MEDS ORDERED: ACETAMINOPHEN 325 MG TABLET PO PRN (17:00)
[2018-02-20] MEDS ORDERED: BISACODYL 10 MG SUPP PR PRN (17:00)
[2018-02-20 17:47] LABS: MICROSCOPIC NOT IND
[2018-02-20 17:49] LABS: CULTURE INDICATED? NO
[2018-02-20] MEDS: NS + 20MEQ KCL 1,000 ML IV SCH (18:19)
[2018-02-20] MEDS: CEFTRIAXONE 1,000 MG in SODIUM CHLORIDE 0.9% 50 ML IV SCH (18:21)
[2018-02-20 18:54] LABS: RAPID INFLUENZA A Negative (Negative); RAPID INFLUENZA B Negative (Negative)
[2018-02-20 20:36] VITALS: BP 137/77
[2018-02-20] MEDS: GABAPENTIN 300 MG CAPSULE PO SCH (20:42)
[2018-02-20] MEDS: ENOXAPARIN 40 MG/0.4 ML SQ SCH (20:42)
[2018-02-20] MEDS: AZITHROMYCIN 500 MG in SODIUM CHLORIDE 0.9% 250 ML IV SCH (20:43)
[2018-02-20] MEDS: methylPREDNISolone SOD SUCC 125 MG/2 ML IVPush SCH (20:43)
[2018-02-20] MEDS: ONDANSETRON ODT 4 MG PO PRN (21:35)
[2018-02-20] MEDS ORDERED: ALBUTEROL SULFATE 2.5 MG/3 ML ONE (22:27)
[2018-02-21] MEDS: NS + 20MEQ KCL 1,000 ML IV SCH (01:52)
[2018-02-21 02:01] VITALS: BP 135/77
[2018-02-21] MEDS: ASPIRIN 325 MG TABLET EC PO SCH (06:07)
[2018-02-21] MEDS: methylPREDNISolone SOD SUCC 125 MG/2 ML IVPush SCH ×3 (06:07→20:30)
[2018-02-21] MEDS: ONDANSETRON ODT 4 MG PO PRN (06:08)
[2018-02-21] MEDS: HYDROcodone/APAP 5/325 TABLET PO PRN ×3 (06:39→20:48)
[2018-02-21 07:06] VITALS: BP 122/62
[2018-02-21] MEDS: ALBUTEROL SULFATE 2.5 MG/3 ML NPPB SCH ×4 (07:55→19:15)
[2018-02-21 08:10] LABS: BASOPHILS % (AUTO) 0 % (0-1); EOSINOPHILS % (AUTO) 0 % (1-7); LYMPHOCYTES # (AUTO) 0.44 x10^3/uL (1-3.4); LYMPHOCYTES % (AUTO) 8 % (22-44); MD NO; MEAN CORPUSCULAR HEMOGLOBIN 31.4 pg (27.5-34.5); MEAN CORPUSCULAR HGB CONC 33.4 g/dL (33.2-36.2); MEAN CORPUSCULAR VOLUME 94.1 fL (81-97); MONOCYTES # (AUTO) 0.18 x10^3/uL (0.2-0.8); MONOCYTES % (AUTO) 3 % (2-9); NEUTROPHILS # (AUTO) 5.06 x10^3/uL (1.8-6.8); NEUTROPHILS % (AUTO) 89 % (42-75); PLATELET COUNT 102 x10^3/uL (130-400); RED BLOOD COUNT 3.73 x10^6/uL (4.38-5.82); RED CELL DISTRIBUTION WIDTH 15.9 % (9.4-14.8)
[2018-02-21 08:22] LABS: ALANINE AMINOTRANSFERASE 41 U/L (12-78); ANION GAP 11 mmol/L (5-15); CALCIUM 8.3 mg/dL (8.5-10.1); CHLORIDE 110 mmol/L (98-107); CREATININE 1.12 mg/dL (0.7-1.3)
[2018-02-21 08:27] LABS: ALKALINE PHOSPHATASE 129 U/L (45-117); BILIRUBIN,TOTAL 0.4 mg/dL (0.2-1.0); CHOLESTEROL, TOTAL 140 mg/dL (140-239); HDL CHOL % 51 % (26-37); HDL CHOLESTEROL (DIRECT) 71 mg/dL (40-60); LDL CHOLESTEROL,CALCULATED 54 mg/dL (54-169); LDL/HDL RATIO 0.8 (0.5-3.0); TOTAL PROTEIN 6.5 g/dL (6.4-8.2); TRIGLYCERIDES 75 mg/dL (50-200); TROPONIN I 0.033 ng/mL (0.000-0.045); VLDL CHOLESTEROL 15 mg/dL (0-25)
[2018-02-21] MEDS: GABAPENTIN 300 MG CAPSULE PO SCH ×3 (09:05→20:29)
[2018-02-21 13:14] VITALS: BP 136/76
[2018-02-21] MEDS: CEFTRIAXONE 1,000 MG in SODIUM CHLORIDE 0.9% 50 ML IV SCH (18:16)
[2018-02-21] MEDS: AZITHROMYCIN 500 MG in SODIUM CHLORIDE 0.9% 250 ML IV SCH (20:29)
[2018-02-21] MEDS: ENOXAPARIN 40 MG/0.4 ML SQ SCH (20:30)
[2018-02-21 20:35] VITALS: BP 130/84
[2018-02-22 01:16] VITALS: BP 149/86
[2018-02-22] MEDS: HYDROcodone/APAP 5/325 TABLET PO PRN ×2 (04:17→10:09)
[2018-02-22] MEDS: methylPREDNISolone SOD SUCC 125 MG/2 ML IVPush SCH (05:19)
[2018-02-22] MEDS: ASPIRIN 325 MG TABLET EC PO SCH (05:19)
[2018-02-22 07:10] VITALS: BP 124/73
[2018-02-22] MEDS ORDERED: PANTOPROZOLE 40MG TABLET PO SCH (07:30)
[2018-02-22] MEDS: ALBUTEROL SULFATE 2.5 MG/3 ML NPPB SCH ×2 (07:42→11:39)
[2018-02-22 07:56] LABS: ANION GAP 9 mmol/L (5-15); CALCIUM 8.2 mg/dL (8.5-10.1); CHLORIDE 107 mmol/L (98-107); CREATININE 1.03 mg/dL (0.7-1.3)
[2018-02-22 08:12] LABS: MEAN PLATELET VOLUME 9.5 fL (7.4-10.4); PLATELET COUNT 104 x10^3/uL (130-400)
[2018-02-22 08:13] LABS: BASOPHILS # (AUTO) 0.01 x10^3/uL (0-0.1); BASOPHILS % (AUTO) 0 % (0-1); EOSINOPHILS % (AUTO) 0 % (1-7); LYMPHOCYTES % (AUTO) 6 % (22-44); MEAN CORPUSCULAR HEMOGLOBIN 31.7 pg (27.5-34.5); MEAN CORPUSCULAR HGB CONC 33.3 g/dL (33.2-36.2); MEAN CORPUSCULAR VOLUME 95.2 fL (81-97); MONOCYTES % (AUTO) 6 % (2-9); NEUTROPHILS # (AUTO) 6.83 x10^3/uL (1.8-6.8); NEUTROPHILS % (AUTO) 87 % (42-75); RED BLOOD COUNT 3.36 x10^6/uL (4.38-5.82); RED CELL DISTRIBUTION WIDTH 16.1 % (9.4-14.8)
[2018-02-22 08:15] LABS: MD SCAN
[2018-02-22] MEDS: GABAPENTIN 300 MG CAPSULE PO SCH (09:53)
[2018-02-22 12:42] VITALS: BP 165/83
== END 2018-02-22 13:32 | disposition left against medical advice (07) | DRG 189 ==
LOC: ED 15:10 → EDIP 16:16 → 5SO 17:08 → 3NE 02-22 01:08
PROVIDERS: ADMIT Hospitalist; ATTEND Hospitalist
DX: J96.21 Acute and chronic respiratory failure with hypoxia (principal); J44.0 Chronic obstructive pulmonary disease with (acute) lower respiratory infection; E87.2 Acidosis; J44.1 Chronic obstructive pulmonary disease with (acute) exacerbation; G62.9 Polyneuropathy, unspecified; D64.9 Anemia, unspecified; Z87.01 Personal history of pneumonia (recurrent); Z85.118 Personal history of other malignant neoplasm of bronchus and lung; Z86.711 Personal history of pulmonary embolism; Z90.2 Acquired absence of lung [part of]; D69.6 Thrombocytopenia, unspecified; F17.210 Nicotine dependence, cigarettes, uncomplicated; Z72.89 Other problems related to lifestyle; I10 Essential (primary) hypertension; I48.2 Chronic atrial fibrillation; I49.3 Ventricular premature depolarization; N40.0 Benign prostatic hyperplasia without lower urinary tract symptoms; Z86.73 Personal history of transient ischemic attack (TIA), and cerebral infarction without residual deficits; Z95.5 Presence of coronary angioplasty implant and graft; Z95.0 Presence of cardiac pacemaker; Z53.21 Procedure and treatment not carried out due to patient leaving prior to being seen by health care provider; Z90.49 Acquired absence of other specified parts of digestive tract; Z98.49 Cataract extraction status, unspecified eye; Z79.899 Other long term (current) drug therapy; Z88.6 Allergy status to analgesic agent; Z88.8 Allergy status to other drugs, medicaments and biological substances
CPT/HCPCS: 36415; 71046; 71275; 80048; 80053; 80061; 81003; 82040; 83605; 83735; 83880; 84100; 84145; 84484; 85025; 85379; 87040; 87400; 93005; 93306; 94640; 96360; 99285; G0378; J0456; J0696; J1650; J3480; J7613; J7620; Q0162; J2930; J7030; J7050; J7512

== ENCOUNTER 2018-05-02 19:04 | Inpatient (IN) | payer MEDICARE, MEDICAID ==
[~2018-05-02] VITALS: Ht 190.5 cm; Wt 87.7 kg
[~2018-05-02 19:04] MED LIST changes: +GABA300C10 PO; -MIDO5TAB PO; +MIDO5TAB9 PO
[2018-05-02] MEDS ORDERED: THIAMINE 100MG TABLET ONE (19:19)
[2018-05-02] MEDS ORDERED: LORazepam 1MG TABLET ONE (19:19)
[2018-05-02] MEDS ORDERED: ONDANSETRON ODT 4 MG ONE (19:19)
[2018-05-02] MEDS ORDERED: ONDANSETRON ODT 4 MG PO ONE (19:30)
[2018-05-02] MEDS ORDERED: THIAMINE 100MG TABLET PO ONE (19:30)
[2018-05-02] MEDS ORDERED: LORazepam 1MG TABLET PO ONE (19:30)
[2018-05-02 19:42] LABS: BASOPHILS # (AUTO) 0.01 x10^3/uL (0-0.1); BASOPHILS % (AUTO) 0 % (0-1); EOSINOPHILS # (AUTO) 0.12 x10^3/uL (0-0.4); EOSINOPHILS % (AUTO) 2 % (1-7); LYMPHOCYTES # (AUTO) 1.55 x10^3/uL (1-3.4); LYMPHOCYTES % (AUTO) 28 % (22-44); MD NO; MEAN CORPUSCULAR HEMOGLOBIN 32.9 pg (27.5-34.5); MEAN CORPUSCULAR HGB CONC 33.9 g/dL (33.2-36.2); MEAN CORPUSCULAR VOLUME 97.2 fL (81-97); MEAN PLATELET VOLUME 8.6 fL (7.4-10.4); MONOCYTES # (AUTO) 0.64 x10^3/uL (0.2-0.8); MONOCYTES % (AUTO) 11 % (2-9); NEUTROPHILS # (AUTO) 3.29 x10^3/uL (1.8-6.8); NEUTROPHILS % (AUTO) 59 % (42-75); PLATELET COUNT 142 x10^3/uL (130-400); RED BLOOD COUNT 3.89 x10^6/uL (4.38-5.82)
[2018-05-02 19:50] LABS: INTERNATIONAL NORMALIZED RATIO 1.05 (0.93-1.1); PROTHROMBIN TIME 11.1 Seconds (9.6-11.5)
[2018-05-02 19:51] LABS: ALANINE AMINOTRANSFERASE 32 U/L (12-78); ALBUMIN 3.1 g/dL (3.4-5.0); ANION GAP 10 mmol/L (5-15); CALCIUM 8.6 mg/dL (8.5-10.1); CHLORIDE 104 mmol/L (98-107); CREATININE 1.07 mg/dL (0.7-1.3)
[2018-05-02 19:54] LABS: ALKALINE PHOSPHATASE 125 U/L (45-117); BILIRUBIN,TOTAL 0.4 mg/dL (0.2-1.0); TOTAL PROTEIN 7.4 g/dL (6.4-8.2)
[2018-05-02] MEDS ORDERED: SODIUM CHLORIDE 0.9%, 500ML IVBOLUS ONE ×2 (20:00→22:00)
[2018-05-02 20:01] LABS: TROPONIN I < 0.015 ng/mL (0.000-0.045)
[2018-05-02] MEDS ORDERED: MIDODRINE 5 MG TABLET PO ONE (22:00)
[2018-05-02 22:58] VITALS: BP 109/69
[2018-05-02] MEDS ORDERED: ONDANSETRON 2MG/ML, 2ML IVPush PRN (23:30)
[2018-05-02] MEDS ORDERED: BISACODYL 10 MG SUPP PR PRN (23:30)
[2018-05-02] MEDS ORDERED: POTASSIUM CHLORIDE 20 MEQ TAB.ER.PRT PO ONE (23:30)
[2018-05-02] MEDS ORDERED: PROMETHAZINE 25 MG/ML, 1ML IM PRN (23:30)
[2018-05-02] MEDS ORDERED: POLYETHYLENE GLYCOL 17 GM PACKET PO PRN (23:30)
[2018-05-02] MEDS ORDERED: ONDANSETRON ODT 4 MG PO PRN (23:30)
[2018-05-02] MEDS ORDERED: GABAPENTIN 300 MG CAPSULE PO PRN (23:30)
[2018-05-02] MEDS ORDERED: hydrALAzine 20 MG/ML, 1ML IVPush PRN (23:30)
[2018-05-02] MEDS ORDERED: MIDODRINE 5 MG TABLET PO PRN (23:30)
[2018-05-02 23:44] LABS: HEMOGLOBIN A1C 5.3 % (4.2-6.3)
[2018-05-02] MEDS: methylPREDNISolone SOD SUCC 125 MG/2 ML IVPush SCH (23:50)
[2018-05-02] MEDS: HEPARIN 5,000 UNITS/ML, 1ML SQ SCH (23:50)
[2018-05-02] MEDS: DOXYCYCLINE 100MG TABLET PO SCH (23:51)
[2018-05-02] MEDS: DOCUSATE 100 MG CAPSULE PO PRN (23:51)
[2018-05-02] MEDS: GABAPENTIN 300 MG CAPSULE PO SCH (23:51)
[2018-05-02] MEDS: HYDROcodone/APAP 5/325 TABLET PO PRN (23:52)
[2018-05-02] MEDS: SODIUM CHLORIDE 0.9% 1,000 ML IV SCH (23:58)
[2018-05-03] VITALS (12 sets, daily range): BP systolic 91–138; BP diastolic 60–90
[2018-05-03 00:05] LABS: THYROID STIMULATING HORMONE 1.17 mIU/L (0.358-3.740)
[2018-05-03 02:27] LABS: MICROSCOPIC NOT IND
[2018-05-03 02:48] LABS: CULTURE INDICATED? NO
[2018-05-03 05:32] LABS: BASOPHILS % (AUTO) 0 % (0-1); EOSINOPHILS % (AUTO) 0 % (1-7); LYMPHOCYTES # (AUTO) 0.19 x10^3/uL (1-3.4); LYMPHOCYTES % (AUTO) 7 % (22-44); MD NO; MEAN CORPUSCULAR HEMOGLOBIN 33.5 pg (27.5-34.5); MEAN CORPUSCULAR HGB CONC 34.8 g/dL (33.2-36.2); MEAN CORPUSCULAR VOLUME 96.3 fL (81-97); MEAN PLATELET VOLUME 9.1 fL (7.4-10.4); MONOCYTES # (AUTO) 0.06 x10^3/uL (0.2-0.8); MONOCYTES % (AUTO) 2 % (2-9); NEUTROPHILS % (AUTO) 90 % (42-75); PLATELET COUNT 101 x10^3/uL (130-400); RED BLOOD COUNT 3.38 x10^6/uL (4.38-5.82); RED CELL DISTRIBUTION WIDTH 15.1 % (9.4-14.8)
[2018-05-03 05:41] LABS: ALANINE AMINOTRANSFERASE 28 U/L (12-78); ALBUMIN 2.6 g/dL (3.4-5.0); ANION GAP 10 mmol/L (5-15); CALCIUM 8.4 mg/dL (8.5-10.1); CHLORIDE 109 mmol/L (98-107); CHOLESTEROL, TOTAL 148 mg/dL (140-239); CREATININE 0.95 mg/dL (0.7-1.3); TRIGLYCERIDES 64 mg/dL (50-200); VLDL CHOLESTEROL 13 mg/dL (0-25)
[2018-05-03 05:43] LABS: ALKALINE PHOSPHATASE 104 U/L (45-117); BILIRUBIN,TOTAL 0.2 mg/dL (0.2-1.0); HDL CHOLESTEROL (DIRECT) 55 mg/dL (40-60); TOTAL PROTEIN 6.2 g/dL (6.4-8.2)
[2018-05-03] MEDS: HYDROcodone/APAP 5/325 TABLET PO PRN ×3 (05:47→21:20)
[2018-05-03] MEDS: methylPREDNISolone SOD SUCC 125 MG/2 ML IVPush SCH ×4 (05:47→23:57)
[2018-05-03 06:19] LABS: LDL CHOLESTEROL,CALCULATED 80 mg/dL (54-169); LDL/HDL RATIO 1.5 (0.5-3.0)
[2018-05-03 06:20] LABS: CHOL/HDL RATIO 2.7; HDL CHOL % 37 % (26-37)
[2018-05-03] MEDS: SODIUM CHLORIDE 0.9% 1,000 ML IV SCH (07:04)
[2018-05-03] MEDS: GABAPENTIN 300 MG CAPSULE PO SCH ×3 (09:08→21:20)
[2018-05-03] MEDS: DOXYCYCLINE 100MG TABLET PO SCH ×2 (09:08→21:19)
[2018-05-03] MEDS: MULTIVITAMIN 1 TABLET PO SCH (09:08)
[2018-05-03] MEDS: HEPARIN 5,000 UNITS/ML, 1ML SQ SCH ×2 (09:09→18:04)
[2018-05-03] MEDS: ALBUTEROL/IPRATROPIUM 2.5MG/0.5MG, 3 ML NPPB PRN (19:06)
[2018-05-03] MEDS: DOCUSATE 100 MG CAPSULE PO PRN (21:20)
[2018-05-04] VITALS (8 sets, daily range): BP systolic 118–161; BP diastolic 68–85
[2018-05-04] MEDS: ALBUTEROL/IPRATROPIUM 2.5MG/0.5MG, 3 ML NPPB PRN (00:20)
[2018-05-04] MEDS: HEPARIN 5,000 UNITS/ML, 1ML SQ SCH ×3 (02:18→17:58)
[2018-05-04] MEDS: methylPREDNISolone SOD SUCC 125 MG/2 ML IVPush SCH ×4 (05:29→23:44)
[2018-05-04] MEDS: HYDROcodone/APAP 5/325 TABLET PO PRN ×3 (05:37→18:35)
[2018-05-04] MEDS: DOXYCYCLINE 100MG TABLET PO SCH ×2 (09:12→20:27)
[2018-05-04] MEDS: MULTIVITAMIN 1 TABLET PO SCH (09:12)
[2018-05-04] MEDS: GABAPENTIN 300 MG CAPSULE PO SCH ×3 (09:12→20:27)
[2018-05-05 00:38] VITALS: BP 151/88
[2018-05-05] MEDS: HEPARIN 5,000 UNITS/ML, 1ML SQ SCH ×2 (01:48→10:00)
[2018-05-05] MEDS: HYDROcodone/APAP 5/325 TABLET PO PRN (01:48)
[2018-05-05] MEDS: methylPREDNISolone SOD SUCC 125 MG/2 ML IVPush SCH (05:41)
[2018-05-05 06:43] VITALS: BP 143/83
[2018-05-05] MEDS ORDERED: DULO20CA17 PO (09:26)
[2018-05-05] MEDS ORDERED: DICL1KIT14 TP (09:26)
[2018-05-05] MEDS ORDERED: DOXY100T PO (09:26)
[2018-05-05] MEDS ORDERED: PRED20TA PO (09:26)
[2018-05-05] MEDS: GABAPENTIN 300 MG CAPSULE PO SCH (09:35)
[2018-05-05] MEDS: DOXYCYCLINE 100MG TABLET PO SCH (09:35)
[2018-05-05] MEDS: MULTIVITAMIN 1 TABLET PO SCH (09:35)
== END 2018-05-05 11:55 | disposition home or self-care (01) | DRG 191 ==
LOC: ED 22:00 → EDIP 22:20 → 4WST 22:30 → 4EST 22:34 → DCLOUNGE 05-05 11:34
PROVIDERS: ADMIT Internal Medicine; ATTEND Internal Medicine
DX: J44.1 Chronic obstructive pulmonary disease with (acute) exacerbation (principal); J96.11 Chronic respiratory failure with hypoxia; E44.0 Moderate protein-calorie malnutrition; I95.89 Other hypotension; F10.129 Alcohol abuse with intoxication, unspecified; E87.6 Hypokalemia; G89.29 Other chronic pain; N40.0 Benign prostatic hyperplasia without lower urinary tract symptoms; F17.210 Nicotine dependence, cigarettes, uncomplicated; D53.9 Nutritional anemia, unspecified; I48.2 Chronic atrial fibrillation; D50.9 Iron deficiency anemia, unspecified; G60.8 Other hereditary and idiopathic neuropathies; Z86.73 Personal history of transient ischemic attack (TIA), and cerebral infarction without residual deficits; Z86.711 Personal history of pulmonary embolism; Z95.0 Presence of cardiac pacemaker; Z95.5 Presence of coronary angioplasty implant and graft; Z85.118 Personal history of other malignant neoplasm of bronchus and lung; Z68.24 Body mass index [BMI] 24.0-24.9, adult; Z88.5 Allergy status to narcotic agent; Z88.8 Allergy status to other drugs, medicaments and biological substances
CPT/HCPCS: 36415; 71045; 72110; 80053; 80061; 80307; 81003; 82306; 82607; 83036; 83735; 84100; 84439; 84443; 84484; 85025; 85610; 85730; 93005; 94640; 99285; G0378; J1644; J7620; J2930; J7030; J7040

== ENCOUNTER 2020-02-08 11:03 | Emergency (ER) | payer MEDICARE, MEDICAID ==
[~2020-02-08] VITALS: Ht 185.4 cm; Wt 89.1 kg
[~2020-02-08 11:03] MED LIST changes: -ALBU6.7H INH; +ALBU6.7H8 INH; +CYAN-27 PO; -CYAN10005 PO; +DICL1KIT14 TP; +DOXY100T PO; +DULO20CA18 PO; -GUAI200T3 PO; +GUAI200T37 PO; +KETO15CR17 EXT; -KETO15CR2 EXT; +MORP-30 PO; -MORP30TA3 PO; +SIMV20TA19 PO; -SIMV20TA3 PO
--- NOTE | 2020-02-08 11:15 | NUR ---
PT HERE D/T SOB, PT WITH RECENT PLANE TRIP FROM [place]. PT WAS RECENTLY TREATED WITH PNA AND HAD BEEN USING 02 2L. PT SATING 97-98% IN RM AT THIS TIME. PT STATES HAVING SOME CHEST TIGHTNESS OFF AND ON FOR LAST COUPLE DAYS PT TO CARD MONITOR, BP, CONT PULSE OX. ERMD IN TO EVAL ORDERS RECIEVED
[2020-02-08 12:18] LABS: ALBUMIN 3.2 g/dL (3.4-5.0); ANION GAP 10 mmol/L (5-15); CALCIUM 9.1 mg/dL (8.5-10.1); CHLORIDE 105 mmol/L (98-107)
--- NOTE | 2020-02-08 12:18 | NUR ---
PIV ESTABLISHED PT TO GO TO CTA.
[2020-02-08 12:21] LABS: MEAN CORPUSCULAR HEMOGLOBIN 32.8 pg (27.5-34.5); MEAN CORPUSCULAR HGB CONC 33.2 g/dL (33.2-36.2); MEAN CORPUSCULAR VOLUME 98.8 fL (81-97); RED BLOOD COUNT 3.44 x10^6/uL (4.38-5.82); RED CELL DISTRIBUTION WIDTH 15.3 % (9.4-14.8)
[2020-02-08 12:24] LABS: CREATININE 1.19 mg/dL (0.7-1.3); TROPONIN I < 0.015 ng/mL (0.000-0.045)
[2020-02-08 12:45] LABS: BASOPHILS # (AUTO) 0.01 x10^3/uL (0-0.1); BASOPHILS % (AUTO) 0 % (0-1); EOSINOPHILS % (AUTO) 1 % (1-7); LYMPHOCYTES # (AUTO) 0.85 x10^3/uL (1-3.4); LYMPHOCYTES % (AUTO) 10 % (22-44); MD SCAN; MEAN PLATELET VOLUME 9.6 fL (7.4-10.4); MONOCYTES # (AUTO) 1.02 x10^3/uL (0.2-0.8); MONOCYTES % (AUTO) 12 % (2-9); NEUTROPHILS # (AUTO) 6.33 x10^3/uL (1.8-6.8); NEUTROPHILS % (AUTO) 76 % (42-75); PLATELET COUNT 92 x10^3/uL (130-400)
--- NOTE | 2020-02-08 12:54 | NUR ---
TASK RN: CATTLE STICKER CALLED TO ROOM BY PATIENT WHO REPORTS '" I NEED SOME O2, IM ALWAYS ON O2 MY LLL WAS REMOVED AND I'M MORE SOB NOW." POX 95%-PLACED ON 1L NC- PROVIDER MADE AWARE CT SCAN CALLED TO EXPEDITE-BLANCHING MACHINE OPERATOR REPORTS HE WILL BE TESTED SHORTLY
--- NOTE | 2020-02-08 13:19 | NUR ---
PT TO CT AT THIS TIME
--- NOTE | 2020-02-08 13:51 | NUR ---
DELAY IN CARE: PT REFUSING TO ALLOW CT STAFF TO USE [place] PIV DUE TO PAIN FROM PREVIOUS IV POKES. PT BACK TO AT THIS TIME. WILL ATTEMPT US GUIDED
[2020-02-08 13:53] VITALS: BP 113/85
[2020-02-08] MEDS ORDERED: OMNIPAQUE 350 MG/ML, 75ML BOTTLE ONE (14:43)
== END 2020-02-08 15:10 | disposition home or self-care (01) ==
LOC: ED 11:41
DX: J44.1 Chronic obstructive pulmonary disease with (acute) exacerbation (principal); R42 Dizziness and giddiness; R94.31 Abnormal electrocardiogram [ECG] [EKG]; R07.9 Chest pain, unspecified; I48.91 Unspecified atrial fibrillation; Z86.711 Personal history of pulmonary embolism; Z86.73 Personal history of transient ischemic attack (TIA), and cerebral infarction without residual deficits; Z95.0 Presence of cardiac pacemaker; Z90.49 Acquired absence of other specified parts of digestive tract; Z88.5 Allergy status to narcotic agent; Z88.8 Allergy status to other drugs, medicaments and biological substances; Z85.89 Personal history of malignant neoplasm of other organs and systems
CPT/HCPCS: 36415; 71045; 71275; 80048; 82040; 83880; 84484; 85025; 93005; 99285; Q9967

== ENCOUNTER 2020-04-15 18:55 | Observation (INO) | payer MEDICARE, MEDICAID ==
[~2020-04-15] VITALS: Ht 190.5 cm; Wt 86.0 kg
--- NOTE | 2020-04-15 19:00 | NUR ---
PT WAS CODE 250. FOUND WALKING TOWARDS HOSPITAL BEFORE HAVING A FALL, UNKNOWN AMOUNT OF TIME DOWN. PT CC OF SOB, CP 9/10 PAIN, DEHYDRATION, NAUSEA, VOMITING, DIARRHEA FOR OVER 3 DAYS. PT [place].
--- NOTE | 2020-04-15 19:25 | NUR ---
REPORT FROM ABIGAIL NICHOLE
[2020-04-15] MEDS ORDERED: SODIUM CHLORIDE 0.9% 1,000ML IVBOLUS ONE (19:30)
--- NOTE | 2020-04-15 19:41 | NUR ---
PT STATES HE HAS BEEN OFF PLAVIX FOR ABOUT 1 MONTH.
[2020-04-15] MEDS ORDERED: ACETAMINOPHEN 325 MG TABLET PO ONE (20:30)
[2020-04-15] MEDS ORDERED: NITROGLYCERIN SINGLE TAB 0.4 MG SL PRN (20:30)
[2020-04-15] MEDS ORDERED: ONDANSETRON 2MG/ML, 2ML IVPush ONE (20:30)
[2020-04-15] MEDS ORDERED: ONDANSETRON 2MG/ML, 2ML ONE (20:37)
[2020-04-15] MEDS ORDERED: NITROGLYCERIN SINGLE TAB 0.4 MG SL ONE (20:37)
[2020-04-15] MEDS ORDERED: ACETAMINOPHEN 500 MG TABLET ONE (20:38)
[2020-04-15] MEDS ORDERED: ACETAMINOPHEN 500 MG TABLET PO ONE (21:00)
--- NOTE | 2020-04-15 21:10 | NUR ---
PT GIVEN WARM BLANKETS AND BEAR WARMER. PT REPORTS NO RELIEF FROM NITRO AWARE
[2020-04-15 21:19] LABS: ANION GAP 7 mmol/L (5-15); CALCIUM 8.1 mg/dL (8.5-10.1); CHLORIDE 107 mmol/L (98-107)
[2020-04-15 21:24] LABS: ALANINE AMINOTRANSFERASE 24 U/L (12-78); ALKALINE PHOSPHATASE 106 U/L (45-117); BILIRUBIN,TOTAL 0.8 mg/dL (0.2-1.0); CREATININE 1.21 mg/dL (0.7-1.3); TOTAL PROTEIN 6.4 g/dL (6.4-8.2); TROPONIN I 0.021 ng/mL (0.000-0.045)
[2020-04-15 21:33] LABS: MEAN CORPUSCULAR HEMOGLOBIN 32.9 pg (27.5-34.5); MEAN CORPUSCULAR HGB CONC 33.9 g/dL (33.2-36.2); MEAN PLATELET VOLUME 9.6 fL (7.4-10.4); RED BLOOD COUNT 3.12 x10^6/uL (4.38-5.82); RED CELL DISTRIBUTION WIDTH 16.5 % (9.4-14.8)
--- NOTE | 2020-04-15 22:23 | NUR ---
PT TO CT
[2020-04-15 22:36] LABS: MD YES
[2020-04-15] MEDS ORDERED: OMNIPAQUE 350 MG/ML, 75ML BOTTLE ONE (22:38)
[2020-04-15 22:41] LABS: PLATELET COUNT 44 x10^3/uL (130-400)
[2020-04-15 22:42] LABS: ANISOCYTOSIS 1+; EOS#(MANUAL) 0.05 x10^3/uL (0.0-0.4); EOS% (MANUAL) 1 % (1-7); LYMPH#(MANUAL) 0.76 x10^3/uL (1-3.4); LYMPHS% (MANUAL) 14 % (22-44); METAMYELOCYTES# (MANUAL) 0.05 x10^3/uL (0-0); METAMYELOCYTES% (MANUAL) 1 % (0-1); MONOS#(MANUAL) 1.08 x10^3/uL (0.3-2.7); MONOS% (MANUAL) 20 % (2-9); OVALOCYTES 2+; REACTIVE LYMPHS # (MANUAL) 0.11 x10^3/uL (0-0); REACTIVE LYMPHS % (MANUAL) 2 % (0-0); SEG#(MANUAL) 3.35 x10^3/uL (1.8-6.8); SEGS% (MANUAL) 62 % (42-75)
[2020-04-15 22:43] LABS: <PLATELET ESTIMATE> DECREASED; <PLT MORPHOLOGY> NORMAL PLT MORPH; GIANT PLATELETS 1+; SMALL PLATELETS 1+
[2020-04-15 22:44] LABS: TEAR DROPS 1+
--- NOTE | 2020-04-15 23:15 | NUR ---
PT RESTING IN [facility]. NO NEEDS AT THIS TIME
[2020-04-16] MEDS ORDERED: POLYETHYLENE GLYCOL 17 GM PACKET PO PRN
[2020-04-16] MEDS ORDERED: ONDANSETRON ODT 4 MG PO PRN
[2020-04-16] MEDS ORDERED: BISACODYL 10 MG SUPP PR PRN
[2020-04-16] MEDS ORDERED: NITROGLYCERIN 0.4 MG BOTTLE (25 TABS) SL PRN
--- NOTE | 2020-04-16 00:10 | NUR ---
PT RESTING IN [facility]. NO NEEDS AT THIS TIME
--- NOTE | 2020-04-16 00:30 | NUR ---
REPORT GIVEN TO MARIA EUGENIA NICHOLE.
[2020-04-16 00:53] VITALS: BP 120/65
[2020-04-16] MEDS ORDERED: POTASSIUM CHLORIDE 20 MEQ TAB.ER.PRT PO ONE ×2 (01:00→08:30)
[2020-04-16] MEDS: GABAPENTIN 300 MG CAPSULE PO SCH ×2 (01:16→08:52)
[2020-04-16 03:49] LABS: ANION GAP 6 mmol/L (5-15); CALCIUM 7.9 mg/dL (8.5-10.1); CHLORIDE 108 mmol/L (98-107); CHOLESTEROL, TOTAL 128 mg/dL (140-239); CREATININE 1.15 mg/dL (0.7-1.3); MEAN CORPUSCULAR HEMOGLOBIN 32.7 pg (27.5-34.5); MEAN CORPUSCULAR HGB CONC 34.1 g/dL (33.2-36.2); MEAN PLATELET VOLUME 10.2 fL (7.4-10.4); RED CELL DISTRIBUTION WIDTH 16.9 % (9.4-14.8); TRIGLYCERIDES 84 mg/dL (50-200); VLDL CHOLESTEROL 17 mg/dL (0-25)
[2020-04-16 03:52] LABS: HDL CHOL % 49 % (26-37); HDL CHOLESTEROL (DIRECT) 63 mg/dL (40-60); LDL CHOLESTEROL,CALCULATED 48 mg/dL (54-169); LDL/HDL RATIO 0.8 (0.5-3.0); TROPONIN I 0.018 ng/mL (0.000-0.045)
[2020-04-16 03:57] LABS: PLATELET COUNT 37 x10^3/uL (130-400)
[2020-04-16 04:35] LABS: MD YES
[2020-04-16 04:39] LABS: EOS#(MANUAL) 0.22 x10^3/uL (0.0-0.4); EOS% (MANUAL) 5 % (1-7); LYMPH#(MANUAL) 1.46 x10^3/uL (1-3.4); LYMPHS% (MANUAL) 34 % (22-44); MONOS#(MANUAL) 0.56 x10^3/uL (0.3-2.7); MONOS% (MANUAL) 13 % (2-9); SEG#(MANUAL) 2.06 x10^3/uL (1.8-6.8); SEGS% (MANUAL) 48 % (42-75)
[2020-04-16 04:40] LABS: ANISOCYTOSIS 1+
[2020-04-16 04:41] LABS: <PLATELET ESTIMATE> DECREASED; GIANT PLATELETS 1+; LARGE PLATELETS 1+; OVALOCYTES 1+
[2020-04-16] MEDS ORDERED: ACETAMINOPHEN 325 MG TABLET PO PRN ×2 (08:30)
[2020-04-16 08:38] VITALS: BP 119/69
[2020-04-16] MEDS: SODIUM CHLORIDE FLUSH 10ML SYR IVF SCH ×2 (08:52)
[2020-04-16] MEDS ORDERED: MIDODRINE 5 MG TABLET PO SCH ×2 (09:00)
[2020-04-16] MEDS ORDERED: morphine SULFATE 10 MG/ML, 1ML IVPush PRN ×2 (09:00)
[2020-04-16] MEDS ORDERED: DULOXETINE 20 MG CAPSULE.DR PO SCH (09:00)
[2020-04-16] MEDS ORDERED: SENNA/DOCUSATE TABLET PO SCH (09:00)
[2020-04-16] MEDS ORDERED: REGADENOSON 0.4 MG/5 ML SYRINGE ONE (09:05)
[2020-04-16 09:43] LABS: TROPONIN I 0.015 ng/mL (0.000-0.045)
[2020-04-16] MEDS ORDERED: NITR0.4T41 SL (10:17)
[2020-04-16 13:31] VITALS: BP 120/71
[2020-04-16 13:57] VITALS: BP 111/70
[2020-04-16] MEDS ORDERED: ASPI81TA45 PO (14:24)
[2020-04-16] MEDS ORDERED: ATOR40TA78 PO (14:25)
== END 2020-04-16 15:20 | disposition home or self-care (01) ==
LOC: ED 21:06 → INTOOBSV 23:51 → EDIP 23:51 → 5SO 04-16 00:42 → DCLOUNGE 04-16 14:43
PROVIDERS: ADMIT Family Medicine; ATTEND Internal Medicine
DX: R07.89 Other chest pain (principal); J44.9 Chronic obstructive pulmonary disease, unspecified; J96.10 Chronic respiratory failure, unspecified whether with hypoxia or hypercapnia; D53.9 Nutritional anemia, unspecified; D69.6 Thrombocytopenia, unspecified; E87.6 Hypokalemia; G62.9 Polyneuropathy, unspecified; N40.0 Benign prostatic hyperplasia without lower urinary tract symptoms; I26.99 Other pulmonary embolism without acute cor pulmonale; E83.51 Hypocalcemia; G47.30 Sleep apnea, unspecified; I10 Essential (primary) hypertension; I25.10 Atherosclerotic heart disease of native coronary artery without angina pectoris; I77.810 Thoracic aortic ectasia; I25.2 Old myocardial infarction; F10.10 Alcohol abuse, uncomplicated; F17.210 Nicotine dependence, cigarettes, uncomplicated; Z85.118 Personal history of other malignant neoplasm of bronchus and lung; Z86.711 Personal history of pulmonary embolism; Z79.899 Other long term (current) drug therapy; Z86.73 Personal history of transient ischemic attack (TIA), and cerebral infarction without residual deficits; Z91.19 Patient's noncompliance with other medical treatment and regimen; Z95.0 Presence of cardiac pacemaker; Z95.5 Presence of coronary angioplasty implant and graft
CPT/HCPCS: 36415; 71045; 71275; 78452; 80048; 80053; 80061; 82607; 84484; 85025; 85379; 93005; 93017; 96374; 96375; 99285; A9502; C9898; G0378; J2270; J2405; J2785; J7030; Q9967